=== PATIENT | female | born 1935 | race Caucasian/White ===

== ENCOUNTER 2018-04-20 19:40 | Observation (INO) | payer OTHER ==
[~2018-04-20] VITALS: Ht 160 cm; Wt 82.2 kg
[2018-04-20] MEDS ORDERED: LASIX20 MG PO (22:26)
[2018-04-20] MEDS ORDERED: LANOXIN125 MCG PO (22:26)
[2018-04-20] MEDS ORDERED: CARDIZEM CD240 MG PO (22:27)
--- NOTE | 2018-04-21 00:19 | NUR ---
PT ADMITTED FROM ED TO CCU 129 AFTER SHE EXPERIENCED WEAKNESS IN HER LEGS, CAUSING HER TO SLIDE OFF HER HOTEL BED. WAS IN TOWN FROM [place] ON A BUS TRIP TO THE [facility]. IS ALERT/ORIENTATED, UNSURE OF MEDICATION DOSES HOWEVER, STATES THAT THE HASN'T TAKEN HER LASIX FOR COUPLE DAYS DUE TO FORGETTING IT AT HOME, NOTE SOME EDEMA IN BOTH LEGS. H/O AFIB, CHF DOES NOT USE O2 AND CURRENTLY IS SATING IN THE MID 90'S ON ROOM AIR. DID TRY TO VOID UPON ARRIVAL TO CCU, URINATED ONLY 50 HOWEVER THE UNDERGARMENT WAS SOAKED. IS NORMALLY INCONT SHE SAYS, USES A FFW, HAS BAD KNEES, BONE ON BONE PAINFUL, IN THERAPY. ABLE TO TRANSFER FROM BSC TO BED WITH MIMIAL ASSISTANCE. OFFERED FOOD, ACCEPTED JELLO AND WATER. CALL LIGHT WITHIN REACH.
--- NOTE | 2018-04-21 02:19 | NUR ---
PT LAYING ON BACK, EYES CLOSED, RESP EVEN AND UNLABORED. SATS ON RA READING 98 WITH HR IN THE MID 80'S.
--- NOTE | 2018-04-21 03:25 | NUR ---
PATIENT ASSISTED TO BEDSIDE MICHELL, SBA. NOW RESTING IN BED AGAIN. DENIES FURTHER NEEDS. CALL LIGHT WITHIN REACH.
--- NOTE | 2018-04-21 06:00 | NUR ---
woke pt for temp, assessment. pt complained of being hungry, offered and accepted pudding. states she is anxious to go home, plans to return to [place] via the "tour" bus that will leave Friday from the [employer].
--- NOTE | 2018-04-21 06:35 | NUR ---
ASSISTED PT TO BSC SBA, INCONT WELL VOIDED 50 CC. BACK TO BED.
--- NOTE | 2018-04-21 07:22 | NUR ---
PT GOT SELF UP TO THE BSC, STATES THE METHADONE IS "KICKING IN" IS TIRED, BUT LESS FEELING OF SKIN CRAWLING. VOIDED 1000.
--- NOTE | 2018-04-21 07:35 | NUR ---
UP TO COMMODE TO EXPELL FORMED STOOL WITH URINE. DENIES PAINFUL URINATION. LEGS REMAIN VERY WEAK.
--- NOTE | 2018-04-21 09:00 | NUR ---
TOOK BREAKFST WELL. MANNY TOLEDO.
[2018-04-21] MEDS ORDERED: WARFARIN SODIUM5 MG PO (10:53)
[2018-04-21] MEDS ORDERED: LATANOPROST2.5 ML OU (10:53)
[2018-04-21] MEDS ORDERED: PROLIA60 MG/1 ML SUB-Q (10:54)
[2018-04-21] MEDS ORDERED: PRESERVISION A1 EAC1 PO (10:54)
[2018-04-21] MEDS ORDERED: TYLENOL EXTRA500 MG PO (10:55)
--- NOTE | 2018-04-21 10:55 | NUR ---
MED REC COMPLETE
--- NOTE | 2018-04-21 11:10 | NUR ---
METHADONE 10 MG PO GIVEN PER ORDERS./O RESTLESS LEGS AND ARMS. UP AMBULATING IN ROOM.
--- NOTE | 2018-04-21 11:31 | NUR ---
PATIENT UP TO BSC, PATIENT COMPLAINTS OF LEGS FEELING WEAK. TOOK SMALL STEPS TO BSC NEXT TO BED. PATIENT ALSO VERY CONCERNED ABOUT HER BELONGINGS AT [facility]. ADMINISTERED BP MEDICAITONS. CALL LIGHT IN REACH.
--- NOTE | 2018-04-21 11:54 | NUR ---
ASSESSMENT DONE. C/O LEGS FEELING WEAK AND PAIN IN CALVES OF LEGS. IS ANXIOUS ABOUT BELONGINGS AT [employer]. TALKED WITH PATIENT ABOUT THIS. SITTING AT BEDSIDE TO EAT LUNCH.
--- NOTE | 2018-04-21 13:23 | NUR ---
PATIENT AMBULATED OUT TO NURSES STATION, AND THEN BACK TO THE ROOM. STATES " I JUST FEEL LIKE I AM PUTTING ALOT WEIGHT ON MY WALKER AND ARMS ARE KILLING ME, AND MY LEGS ARE BURNING IN HE CALFS." PATIENT TOLERATED WALK AND APPEARED STABLE ON FEET, DESPIE COMPLAINTS OF PAIN, MINIMAL SOB O2 SATURATION 93% RA, AND INCREASE IN PULSE 92-[address] REPOR TO [address] BENITEZ, NEW ORDER FOR PHYSICAL THERAPY CONSULT.
--- NOTE | 2018-04-21 14:22 | NUR ---
continue to sit in chair. HR-78. CONTINUE TO C/O LOWER LEG PAIN BILAT.
--- NOTE | 2018-04-21 14:45 | NUR ---
ORDERS RECIEVED TO TRANSFER TO MEDICAL FLOOR. MONITOR DC'D. REPORT TO MEDICAL FLOOR.
--- NOTE | 2018-04-21 15:00 | NUR ---
TO MEDICAL FLOOR VIA CHAIR.
--- NOTE | 2018-04-21 15:28 | NUR ---
PT SITTING UP IN RECLINER, ALERT AND ORIENTED. ONE PERSON ASSIST TO BATHROOM TO VOID. PT REPORTS PAIN IN LEGS WITH ACTIVITY.
--- NOTE | 2018-04-21 17:08 | NUR ---
PT TRANSFERED FROM CCU THIS AFTERNOON. SHE REPORTS MINIMAL PAIN WHILE AT REST, PAIN SIGNIFICANTLY INCREASES WITH ACTIVITY. MD ORDERED XRAY FOR RIGHT LEG. SHE IS ONE PERSON TO AMBULATE. GOOD APPETITE, QUANTITY SUFFICIENT URINE OUT. HEART RATE WELL CONTROLLED. SHE IS ALERT AND ORIENTED TO ALL. DAUGHTER IN [facility] UPDATED ON PHONE, ALSO SPOKE WITH ON PHONE TO UPDATE ON PLAN OF CARE.
--- NOTE | 2018-04-21 17:29 | NUR ---
ASPERE CREAM APPLIED TO RIGHT LOWER EXTREMETY, XRAY DEPT CALLED TO NOTIY OF XRAY ORDERED TALKED TO JOSE.
[2018-04-21] MEDS ORDERED: CEPHALEXIN500 MG PO (20:10)
[2018-04-21] MEDS ORDERED: METOPROLOL SUCC25 MG PO (20:10)
--- NOTE | 2018-04-21 20:19 | NUR ---
RECEIVED REPORT FROM DAY SHIFT RN. PATIENT IS RESTING IN RECLINER. PATIENT DENIES ANY NEEDS. CALL LIGHT IN REACH. AND ALARM ON.
--- NOTE | 2018-04-21 20:59 | EKG ---
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
--- NOTE | 2018-04-21 21:20 | NUR ---
PATIENT ASSESMENT COMPLETED. PATIENTS EVENING MEDICATIONS GIVEN PER ORDER. PATIENT GIVEN PRN TYLENOL FOR DISCOMFORT IN HER LEGS. PATIENT DENIES ANY FURHTER NEEDS AT THIS TIME. CALL LIGHT IN REACH.
--- NOTE | 2018-04-21 22:38 | NUR ---
PATIENTS BED ALARM WAS ALERTING STAFF. PATIENT ASSISTED TO THE RESTROOM A SBA W/FWW. PATIENT IS STEADY ON HER FEET. PATIENT WAS INCONTINENT AND WAS ABLE TO VOID. PATIENT IS NOW BACK IN BED RESTING. PATIENT DENIES ANY FURTHER NEEDS. PATIENT EDUCATED THAT SHE NEEDS TO USE THE CALL LIGHT. PATIENT VERBALIZED UNDERSTANDING. PATIENTS BED ALARM PLACED ON FOR SAFETY. CALL LIGHT IN REACH.
--- NOTE | 2018-04-21 23:04 | NUR ---
PATIENTS FAMILY IS HERE TO VISIT. NO NEEDS NOTED.
--- NOTE | 2018-04-21 23:33 | NUR ---
PATIENTS FAMILY HAS LEFT. PATIENT DENIES ANY NEEDS. BED ALARM IS ON AND CALL LIGHT IN REACH.
--- NOTE | 2018-04-22 01:09 | NUR ---
BED ALARM WENT OFF, PATIENT TRIED TO GET UP. 1 PA TO THE BATHROOM USING WALKER. PATIENT IS BACK IN BED NOW. CALL LIGHT WITHIN REACH. BED ALARM ON.
--- NOTE | 2018-04-22 01:22 | NUR ---
PATIENT ASSISTED TO THE RESTROOM BY AERONAUTICAL TEST ENGINEER. NO NEEDS NOTED. PATIENT IS BACK IN BED RESTING WITH BED ALARM ON. CALL LIGHT IN REACH.
--- NOTE | 2018-04-22 02:48 | NUR ---
PATIENT ASSISTED TO THE RESTROOM A SBA W/FWW. PATIENT IS BACK IN BED RESTING. PATIENT GIVEN PRN TYLENOL FOR PAIN IN HER RIGHT LEG. ASPERCREME ALSO RUBBED ON PATIENTS RIGHT LEG. NO FURTHER NEEDS NOTED. CALL LIGHT IN REACH.
--- NOTE | 2018-04-22 04:28 | NUR ---
PATIENT IS RESTING IN BED WITH EYES CLOSED, RR 17. BED ALARM ON FOR SAFETY . CALL LIGHT IN REACH.
--- NOTE | 2018-04-22 04:59 | NUR ---
PATIENT RESTED ON AND OFF THROUGHOUT THE SHIFT. PATIENT IS ON A CARDIAC DIET AND TOLERATING IT WELL. PATIENT IS A SBA W/FWW. PATIENT IS SL AND IV FLUSHES WELL. PATIENT IS IMPULSIVE AT TIMES. PATIENTS BED ALARM IS ON FOR SAFETY. PATIENT RECEIVED PRN TYLENOL X2 PRN FOR PAIN IN HER RIGHT LEG. PATIENT ALSO RECEIVED PRN ASPERCREME FOR PAIN IN HER LOWER EXT. PATIENT IS AAOX3.
--- NOTE | 2018-04-22 06:09 | NUR ---
PATIENTS VITALS TAKEN AND RECORDED BY LABORER YARD. PATIENT ASSESMENT COMPLETED. PATIENT DENIES ANY NEEDS AT THIS TIME. CALL LIGHT IN REACH.
--- NOTE | 2018-04-22 07:42 | NUR ---
REPORT RECIEVED FROM JOSE NAM. PT AWAKE AND STATES HER SON IS COMING IN TO GET HER THIS MORNING.
--- NOTE | 2018-04-22 09:08 | NUR ---
PT SUPRISED TO LEARN HER LEG IS FRACTURED. STATES SHE KNEW IT HAD BEEN ACHING. STILL HOPING TO BE DISCHARGED TODAY. DENIES FURTHR CONCERNS.
--- NOTE | 2018-04-22 11:00 | NUR ---
ASSISTED PT WITH GETTING DRESSED AND BATHROOM. PT THEN WENT TO MANAGER INTERMEDIATE ROOM AND HAD LEG FITTED WITH BRACE. WAITING FOR FAMILY TO COME RF TEST ENGINEER FOR DISCHARGE. PT DENIES CONCERNS.
--- NOTE | 2018-04-22 12:47 | NUR ---
PT DISCHARGED HOME IWTH SON AND DAUGHTER IN [place]. PT FITTED FOR BRACE AND IT WAS EXPLAINED TO FAMILY ALSO. ALL VERBALIZED UNDERSTANDING. FOLLOW UP APPT INSTRUCTED. SCRIPTS GIVEN AND PHARMACY AND THIS RN WENT OVER SIDE EFFECTS, IMPROTANCE OF TAKING AND PURPOSE. VS STABLE. PT WHEELED OUT TO CAR. BELONGINGS RETURNED. IV REMOVED WNL.
--- NOTE | 2018-04-23 07:06 | CONS ---
[facility] [address] [place], [place] [address] Signed DATE OF CONSULTATION: REQUESTED BY: Dr. Ashley. Ms. Saldana is an 83-year-old white female, who lives in [place], [place]. She indicates that she took a little road trip down to the [facility] because she wanted to go to the [employer]. She says on her 1st night there, she went to sit down on the edge of her bed. She describes the bed cover as being somewhat slippery and said she was also wearing relatively slippery pants and then she went to sit down. She felt herself sliding off and she thinks fell to her right side. PAST MEDICAL HISTORY: She has a long history of problems with both knees, more severe on the left. It would appear she has previously been recommended for a total knee arthroplasty on the left, but she has declined to do so out of appropriate concerns that she might not be able to sustain the rehabilitation. PHYSICAL EXAMINATION: On examination, the right knee is mildly tender over the proximal lateral fibula. There is no instability to varus or valgus stress. She can do a straight leg raise. There is no effusion in the knee joint itself. Attempts to apply a little valgus pressure do not dramatically increase her symptoms and there is no evidence of a footdrop. DIAGNOSTIC DATA: Her x-rays were reviewed and she has a nondisplaced fracture of the proximal fibula. There is nothing to suggest that this is the upper and of any Maisonneuve injury as there is no swelling, tenderness, or pain about the ankle. IMPRESSION: She has a nondisplaced fibular fracture. I have told her she might get some symptomatic relief with a four-strap hinged knee brace. She otherwise can pursue activity as tolerated, weightbearing as tolerated, and should probably follow up with her primary care provider or an orthopedic surgeon in the [place], [place] area in the next couple of weeks. Thank you for asking me to see her. Julian Ellis MD Electronically Signed By: JULIAN ELLIS MD 04/23/18 0706 PATIENT NAME: ELIER SALDANA OSMIN CONSULTATION DATE OF : 35 REPORT #: [id number] PHYSICIAN: JULIAN ELLIS MD PCP: OTHER PCP REPORT IS CONFIDENTIAL AND NOT TO BE RELEASED WITHOUT AUTHORIZATION [facility] [address] [facility] [place] [address] Signed LOGAN/LACY /[id number] Copies: ~ Electronically Signed By: JULIAN ELLIS MD 04/23/18 0706 PATIENT NAME: ELIER SALDANA CONSULTATION DATE OF : 35 REPORT #: [id number] PHYSICIAN: JULIAN ELLIS MD PCP: OTHER PCP REPORT IS CONFIDENTIAL AND NOT TO BE RELEASED WITHOUT AUTHORIZATION
== END 2018-04-22 12:00 | disposition home or self-care (01) ==
LOC: ED 19:40 → CCU 19:42 → MS 04-21 14:59
PROVIDERS: ADMIT Internal Medicine
DX: I48.2 Chronic atrial fibrillation (principal); E86.0 Dehydration; N30.00 Acute cystitis without hematuria; T50.1X5A Adverse effect of loop [high-ceiling] diuretics, initial encounter; D50.9 Iron deficiency anemia, unspecified; I50.9 Heart failure, unspecified; M19.90 Unspecified osteoarthritis, unspecified site; M80.061A Age-related osteoporosis with current pathological fracture, right lower leg, initial encounter for fracture; W06.XXXA Fall from bed, initial encounter; Z79.899 Other long term (current) drug therapy; Y92.59 Other trade areas as the place of occurrence of the external cause
CPT/HCPCS: 36415; 73590; 80053; 80162; 81001; 83735; 84484; 85025; 85379; 85610; 85730; 87077; 87088; 87186; 93005; 93010; 96374; 96375; 96376; 97116; 97162; 99285; G0378; G8978; G8979; J0696; J7120